=== PATIENT | female | born 2000 | race Caucasian/White ===

== ENCOUNTER 2023-07-02 17:53 | Emergency (ER) | payer OTHER ==
[~2023-07-02] VITALS: Ht 162.6 cm; Wt 53.1 kg
[2023-07-02 18:29] VITALS: BP 105/76; PULSE 94; RESP 16; TEMP 98.1; O2SAT 98
[2023-07-02 18:39] VITALS: BP 124/93; PULSE 109; RESP 16; TEMP 99; O2SAT 99
[2023-07-02 19:25] LABS: BASOPHILS % (AUTO) 0.5 % (0.0-2.0); EOSINOPHILS # (AUTO) 0.1 K/uL (0-0.4); EOSINOPHILS % (AUTO) 0.8 % (0.0-4.0); HEMATOCRIT 45.4 % (36-48); HEMOGLOBIN 15.4 g/dL (12.0-16.0); LYMPHOCYTES # (AUTO) 1.7 K/uL (2.5-16.5); LYMPHOCYTES % (AUTO) 21.9 % (20.5-51.1); MEAN CORPUSCULAR HEMOGLOBIN 33 pg (27-31); MEAN CORPUSCULAR HGB CONC 34 g/dL (33-37); MEAN CORPUSCULAR VOLUME 96.3 fL (80-94); MONOCYTES # (AUTO) 0.4 K/uL (0.8-1.0); MONOCYTES % (AUTO) 5.1 % (1.7-9.3); NEUTROPHILS # (AUTO) 5.5 K/uL (1.8-7.7); NEUTROPHILS % (AUTO) 71.7 % (42.2-75.2); PLATELET COUNT (AUTO) 283 K/uL (140-450); RED BLOOD CELL COUNT(AUTO) 4.71 MIL/uL (4.20-5.40); RED CELL DISTRIBUTION WIDTH 12.9 % (11.6-13.7); WHITE BLOOD COUNT (AUTO) 7.7 K/uL (4.8-10.8)
[2023-07-02 19:39] LABS: ANION GAP 12.7 (8-16); CALCIUM 9.5 mg/dL (8.5-10.1); CARBON DIOXIDE 29.8 mmol/L (21-32); CREATININE 0.7 mg/dL (0.6-1.3); POTASSIUM 3.5 mmol/L (3.5-5.1)
[2023-07-02] MEDS ORDERED: IBUP-2213 PO (20:31)
[2023-07-02] MEDS ORDERED: ATA25 PO (20:31)
[2023-07-02] MEDS ORDERED: ONDA8TAB87 PO (20:31)
[2023-07-02] MEDS: LORazepam 1 MG TAB PO ONE (21:11)
== END 2023-07-02 20:44 | disposition home or self-care (01) ==
LOC: MED 17:53
DX: R07.9 Chest pain, unspecified (principal); R06.02 Shortness of breath; R42 Dizziness and giddiness; Z79.899 Other long term (current) drug therapy
CPT/HCPCS: 36415; 80048; 81002; 81025; 85025; 93005; 99284